=== PATIENT | female | born 1970 | race Caucasian/White ===

== ENCOUNTER → 2016-09-27 11:43 | Emergency (ER) | payer SELFPAY ==
[~2016-09-27 11:43] MED LIST: Cyclobenzaprine TAB* 10 MG PO ONE; Ibuprofen TAB* 400 MG PO ONE
[2016-09-27 11:47] VITALS: BP 144/87
--- NOTE | 2016-09-27 14:16 | ED ---
Neck Pain - HPI Summary HPI Summary: Patient presents with neck pain since tripping over a futon on home. She caught herself with her hands and thinks her muscles tightened with she kept her head from hitting the floor. She denies hitting her head, LOC, N/T or MALIK. - History of Current Complaint Chief Complaint: EDNeckComplaint Stated Complaint: NECK PAIN Time Seen by Provider: 09/27/16 12:32 Hx Obtained From: Patient Onset/Duration Of Injury/Symptoms: Hours Mechanism Of Injury: Other - falling Timing: Constant Onset/Duration: Gradual Onset Severity Initially: Mild Severity Currently: Mild Pain Intensity: 3 Character: Aching, Stiff Aggravating Factors: Movement Alleviating Factors: Nothing Associated Signs & Symptoms: Positive: Negative - Allergies/Home Medications Allergies/Adverse Reactions: Allergies Allergy/AdvReac Type Severity Reaction Status Date / Time No Known Allergies Allergy Verified 09/27/16 13:24 PMH/Surg Hx/FS Hx/Imm Hx Previously Healthy: Yes Infectious Disease History: No Infectious Disease History: Denies: Traveled Outside the in Last 30 Days - Family History Known Family History: Positive: None - Social History Occupation: Employed Part-time Lives: With Family Alcohol Use: Rare Substance Use Type: Reports: None Smoking Status (MU): Never Smoked Tobacco Review of Systems Negative: Photophobia, Blurred Vision Positive: Myalgia. Negative: Decreased ROM, Edema Negative: Bruising Negative: Weakness, Paresthesia, Numbness All Other Systems Reviewed And Are Negative: Yes Physical Exam Triage Information Reviewed: Yes Vital Signs On Initial Exam: Initial Vitals Temp Pulse Resp BP Pulse Ox 98.7 F 108 18 144/87 99 09/27/16 11:46 09/27/16 11:46 09/27/16 11:46 09/27/16 11:46 09/27/16 11:46 Vital Signs Reviewed: Yes Appearance: Positive: Well-Appearing, Well-Nourished, Pain Distress Skin: Positive: Warm, Skin Color Reflects Adequate Perfusion, Dry, Soft Head/Face: Positive: Normal Head/Face Inspection Eyes: Positive: EOMI, ISIDRO, Conjunctiva Clear ENT: Positive: Hearing grossly normal Neck: Positive: Supple, No Lymphadenopathy, Tenderness @ - TTP bilateral trapezius muscles Respiratory/Lung Sounds: Positive: Breath Sounds Present Cardiovascular: Positive: RRR Musculoskeletal: Positive: Strength/ROM Intact - pain with movement. Negative: Edema Left, Edema Right Neurological: Positive: Sensory/Motor Intact, Alert, Oriented to Person Place, Time, NV Bundle Intact Distally, Normal Gait Psychiatric: Positive: Affect/Mood Appropriate AVPU Assessment: Alert Diagnostics - Vital Signs Vital Signs Temp Pulse Resp BP Pulse Ox 09/27/16 13:24 98.7 F 108 18 144/87 94 09/27/16 11:46 98.7 F 108 18 144/87 99 - Laboratory Lab Statement: Any lab studies that have been ordered have been reviewed, and results considered in the medical decision making process. Re-Evaluation - Re-Evaluation First Eval Re-Evaluation Time: 14:10 Change: Improved - pain has decreased with treatment Neck Course/Dx - Diagnoses Differential Dx/HQI/PQRI: Positive: Adenitis, Arthritis, Sprain, Strain, Torticollis, Trauma Provider Diagnoses: Neck muscle strain Discharge - Discharge Plan Condition: Stable Disposition: HOME Prescriptions: Cyclobenzaprine TAB* [Flexeril 10 MG TAB*] 10 mg PO TID PRN #15 tab PRN Reason: Pain Patient Education Materials: Neck Pain (ED) Referrals: Non Staff,Doctor [Primary Care Provider] - [facility] [place] [place] [facility] [Outside] Additional Instructions: Please use the medication provided in combination with ibuprofen 600mg three times daily with meals for the next 3-5 days to decrease pain and stiffness. Apply a warm pack several times daily as well. Call the number provided to establish care with a provider who is accepting new patients. Follow-up with your primary care provider if symptoms do not begin to improve in the next 3-5 days. Return to the emergency department if symptoms worsen.
== END | disposition home or self-care (01) ==
LOC: ED 11:43
DX: S16.1XXA Strain of muscle, fascia and tendon at neck level, initial encounter (principal); M54.2 Cervicalgia; W19.XXXA Unspecified fall, initial encounter; Y93.9 Activity, unspecified; Y92.9 Unspecified place or not applicable
CPT/HCPCS: 99285; A9270-GY

== ENCOUNTER 2016-11-15 22:26 | Emergency (ER) | payer OTHER ==
[2016-11-15] MEDS ORDERED: Ketorolac INJ* 60 MG/2 ML VIAL IM ONE (22:58)
[2016-11-16] MEDS ORDERED: Tetan/Diph/Pertus SYR(Tdap)* 0.5 ML SYR(BOOSTRIX) use SYR IM ONE (00:28)
--- NOTE | 2016-11-16 00:55 | ED ---
Madeline De La Rosa Rebecca, scribed for Valentino Garcia MD on 11/15/16 at 2258 . Adult Trauma - HPI Summary HPI Summary: Pt is a 46 y/o F who presents to ED c/o dizziness and blurred vision/swelling in the L eye s/p mechanical fall. Pt reports 1 hour [employer] (2129) she fell forward , hitting her face on the ground. Denies LOC. Associated pain is currently severe, ranked 8/10. Sx began immediately after fall and have been constant since onset. - History of Current Complaint Chief Complaint: EDDizziness Stated Complaint: FALL- POSS BROKEN NOSE/DIZZY Time Seen by Provider: 11/15/16 22:50 Hx Obtained From: Patient Mechanism of Injury: Fall Loss of Consciousness: no loss of consciousness Onset/Duration: Started Hours Ago, Still Present Onset of Pain: Immediate Current Severity: Severe Pain Intensity: 8 Pain Scale Used: 0-10 Numeric Aggravating Factor(s): Nothing Alleviating Factor(s): Nothing Associated Signs & Symptoms: Positive: Other: - Dizziness, blurred vision/ swelling in the L eye. Negative: Loss of Consciousness - Allergy/Home Medications Allergies/Adverse Reactions: Allergies Allergy/AdvReac Type Severity Reaction Status Date / Time No Known Allergies Allergy Verified 11/15/16 22:28 PMH/Surg Hx/FS Hx/Imm Hx Previously Healthy: Yes Endocrine/Hematology History: Denies: Hx Diabetes Cardiovascular History: Denies: Hx Coronary Artery Disease, Hx Hypertension Infectious Disease History: No Infectious Disease History: Denies: Traveled Outside the [place] in Last 30 Days - Family History Known Family History: Negative: Hypertension, Diabetes - Social History Alcohol Use: None Substance Use Type: Reports: None Hx Tobacco Use: No Smoking Status (MU): Never Smoked Tobacco Review of Systems Positive: Blurred Vision - L eye Positive: Other - Swelling in the L eye Neurological: Other - Dizziness; Denies LOC All Other Systems Reviewed And Are Negative: Yes Physical Exam Triage Information Reviewed: Yes Vital Signs On Initial Exam: Initial Vitals Temp Pulse Resp BP Pulse Ox 97.5 F 109 20 129/74 100 11/15/16 22:30 11/15/16 22:30 11/15/16 22:30 11/15/16 22:30 11/15/16 22:30 Vital Signs Reviewed: Yes Appearance: Positive: Well-Appearing, Pain Distress - mild discomfort Skin: Positive: Warm Head/Face: Positive: Other - mildly swollen nose Eyes: Positive: EOMI, ISIDRO, Conjunctiva Inflammed - left ENT: Positive: Hearing grossly normal, Other - no septal hematoma Neck: Positive: Supple, Nontender Respiratory/Lung Sounds: Positive: Breath Sounds Present Cardiovascular: Positive: RRR Musculoskeletal: Positive: Strength/ROM Intact Neurological: Positive: Sensory/Motor Intact, Alert, Oriented to Person Place, Time, Normal Gait Diagnostics - Vital Signs Vital Signs Temp Pulse Resp BP Pulse Ox 11/15/16 22:30 97.5 F 109 20 129/74 100 - Laboratory Lab Statement: Any lab studies that have been ordered have been reviewed, and results considered in the medical decision making process. - CT Brain CT CT Interpretation: Positive (See Comments) - Nasal bridge fracture. No intracranial pathology. CT Interpretation Completed By: Radiologist Maxillofacial CT CT Interpretation: Positive (See Comments) - There are acute, mildly displaced fractures of both sides of the nasal bone. The facial bones and orbits are otherwise intact. Orbital globes and extraocular muscles are grossly intact. 2.0 cm mucous retention cyst is noted in the right maxillary sinus. There is a tiny air-fluid level noted in the left maxillary sinus. CT Interpretation Completed By: Radiologist - EKG 2256 Cardiac Rate: NL - 90 bpm EKG Rhythm: Sinus Rhythm EKG Interpretation: No STEMI Re-Evaluation - Re-Evaluation First Eval Re-Evaluation Time: 00:29 Change: Improved Comment: Discussed CT results with pt as well as disposition. Second Eval Re-Evaluation Time: 01:18 Comment: Pt requests work note. Adult Trauma Course/Dx - Course Assessment/Plan: Pt is a 46 y/o F who presents to ED c/o dizziness and swelling in the L eye that began immediately s/p mechanical fall at 2130 tonight. Denies LOC. Associated pain is currently severe, ranked 8/10. Brain CT and Maxillofacial CT reveal fractures of the nasal bone. EKG reveals no acute findings. She will be D/C to home with Dx of nasal bone fracture with a follow up with ENT. She understands and agrees. - Diagnoses Provider Diagnoses: Nasal bone fracture Discharge - Discharge Plan Condition: Stable Disposition: HOME Prescriptions: Ibuprofen TAB* [Motrin TAB* 600 MG] 600 mg PO Q6H #30 tab Patient Education Materials: Nasal Fracture (ED) Forms: *Work Release Referrals: Giovanni Kimball MD [Medical Doctor] - 2 Days The documentation as recorded by the Madeline lerma Rebecca accurately reflects the service I personally performed and the decisions made by me, Valentino Garcia MD.
[2016-11-16] MEDS ORDERED: Ibuprofen TAB* 600 MG PO ONE ×2 (01:16→01:21)
[2016-11-16 01:37] VITALS: BP 110/64
--- NOTE | 2016-11-16 07:34 | RAD ---
HISTORY: Fall, trauma, dizziness COMPARISONS: None TECHNIQUE: Multiple contiguous axial CT scans were obtained of the face without intravenous contrast, with coronal and sagittal multiplanar reformations. FINDINGS: BONES: There are comminuted fractures of the nasal bones bilaterally. The orbital rims are intact. ORBITS: The globes are round. The optic nerves are symmetric. The extraocular musculature is normal. There is no post septal or intraconal inflammatory change. There is no retrobulbar hematoma. PARANASAL SINUSES: The nasal septum is deviated to the left with right-sided spurring. There is a mucous retention cyst versus polypoid mucosal thickening of the right maxillary sinus. BRAIN AND SOFT TISSUE: Unremarkable. OTHER: None. IMPRESSION: BILATERAL NASAL BONE FRACTURES
--- NOTE | 2016-11-16 07:36 | RAD ---
INDICATION: Head injury. COMPARISON: There are no prior studies available for comparison. TECHNIQUE: Contiguous axial sections of the brain were obtained from the skull base to the vertex without contrast. FINDINGS: The ventricles, cisterns and sulci are within normal limits. No significant focal abnormality or mass effect is seen. There is no evidence for hemorrhage. There are bilateral fractures of the nasal bones. No additional fractures are seen. There is a 1.6 cm mucous retention cyst or polyp within the right maxillary sinus. The visualized portion of the paranasal sinuses and mastoid air cells otherwise appear clear. IMPRESSION: 1. NO EVIDENCE FOR ACUTE INTRACRANIAL ABNORMALITY. 2. BILATERAL NASAL BONE FRACTURES.
== END 2016-11-16 01:30 | disposition home or self-care (01) ==
LOC: MERGE 22:26 → ED 22:26
DX: S02.2XXA Fracture of nasal bones, initial encounter for closed fracture (principal); W18.30XA Fall on same level, unspecified, initial encounter; Y93.9 Activity, unspecified; Y92.9 Unspecified place or not applicable; Z23 Encounter for immunization; H53.8 Other visual disturbances; R42 Dizziness and giddiness
CPT/HCPCS: 70450; 70486; 90471; 90715; 93005; 96372; 99283; A9270-GY; J1885

== ENCOUNTER 2016-11-16 12:56 | Emergency (ER) | payer OTHER ==
[2016-11-16] MEDS ORDERED: Tetracaine 0.5% OPTH.SOL 4 ML* 1 DROP BTL ONE (13:44)
[2016-11-16] MEDS ORDERED: Tetracaine 0.5% OPTH.SOL 15ML* BTL ONE (13:45)
[2016-11-16] MEDS ORDERED: HYDROcodone/ACETAMIN 5-325 MG* 1 TAB PO ONE (14:33)
--- NOTE | 2016-11-16 14:38 | ED ---
Throat Pain/Nasal Congestion - History of Current Complaint Chief Complaint: EDEyeProblem Time Seen by Provider: 11/16/16 13:44 - Allergies/Home Medications Allergies/Adverse Reactions: Allergies Allergy/AdvReac Type Severity Reaction Status Date / Time No Known Allergies Allergy Verified 09/27/16 13:24 PMH/Surg Hx/FS Hx/Imm Hx Endocrine/Hematology History: Denies: Hx Diabetes Cardiovascular History: Denies: Hx Coronary Artery Disease, Hx Hypertension Infectious Disease History: No Infectious Disease History: Denies: Traveled Outside the [place] in Last 30 Days - Family History Known Family History: Positive: None Negative: Hypertension, Diabetes - Social History Alcohol Use: Rare Substance Use Type: Reports: None Hx Tobacco Use: No Smoking Status (MU): Never Smoked Tobacco Physical Exam Vital Signs On Initial Exam: Initial Vitals Temp Pulse Resp BP Pulse Ox 99 F 76 17 114/54 97 11/16/16 12:57 11/16/16 12:57 11/16/16 12:57 11/16/16 12:57 11/16/16 12:57 - Naila Coma Scale Coma Scale Total: 15 Diagnostics - Vital Signs Vital Signs Temp Pulse Resp BP Pulse Ox 11/16/16 13:06 99 F 76 16 114/54 97 11/16/16 12:57 99 F 76 17 114/54 97 - Laboratory Lab Statement: Any lab studies that have been ordered have been reviewed, and results considered in the medical decision making process. EENT Course/Dx - Diagnoses Provider Diagnoses: Corneal abrasion, left Discharge - Discharge Plan Condition: Stable Disposition: HOME Patient Education Materials: Corneal Abrasion (ED) Referrals: No Primary Care Phys,NOPCP [Primary Care Provider] - Ricky Leal MD [Medical Doctor] - Additional Instructions: Use prescribed eye drops in left eye, 1 drop every 3 hours for the next 7 days, or until entire bottle is finished. If new symptoms develop or symptoms worsen return to ED. Give eye 24-48 hours for improvement. Rest eye, keep closed, wear sunglasses and stay away from bright lights. Cool compresses to help soothe pain. Keep fingers and things out of the eye. Do not use eye until symptoms improved. Follow up with eye doctor on Saturday if symptoms persist. Follow up with PCP.
[2016-11-16] MEDS ORDERED: Polymyx/Trimethoprim OPTH* 10 ML BTL LEFT EYE SCH (15:00)
[2016-11-16 15:47] VITALS: BP 112/58
== END 2016-11-16 15:45 | disposition home or self-care (01) ==
LOC: ED 12:56
DX: S05.02XA Injury of conjunctiva and corneal abrasion without foreign body, left eye, initial encounter (principal); X58.XXXA Exposure to other specified factors, initial encounter; Y93.9 Activity, unspecified; Y92.9 Unspecified place or not applicable
CPT/HCPCS: 99282; A9270-GY

== ENCOUNTER 2016-11-24 18:51 | Emergency (ER) | payer OTHER ==
[2016-11-24] MEDS ORDERED: BSS OPTH.SOL* BTL OPHTHALMIC ONE (22:35)
[2016-11-24] MEDS ORDERED: Fluorescein Sodium TOPICAL* 1 MG TEST OPHTHALMIC ONE (22:36)
--- NOTE | 2016-11-25 00:12 | UC ---
Eye Complaint HPI - HPI Summary HPI Summary: 7 days ago fell on broke her nose-came in to the ed the next day with left eye pain-she was then dx with a corneal abrasion, rx eye drops---She seemed to be getting better then this morning noted the vision in her left eye was blurry - History of Current Complaint Chief Complaint: EDEyeProblem Stated Complaint: EYE COMPLAINT Time Seen by Provider: 11/24/16 22:29 Hx Obtained From: Patient ?: No Onset/Duration: Lasting Weeks - 1, Still Present, Worse Since - seemed to get better than got worse again today Timing: Constant Severity Initially: Mild Severity Currently: Mild Pain Intensity: 2 Pain Scale Used: 0-10 Numeric Aggravating Factor(s): Nothing Alleviating Factor(s): Nothing Associated Signs And Symptoms: Positive: Vision Impairment Left - Allergies/Home Medications Allergies/Adverse Reactions: Allergies Allergy/AdvReac Type Severity Reaction Status Date / Time No Known Allergies Allergy Verified 09/27/16 13:24 PMH/Surg Hx/FS Hx/Imm Hx Previously Healthy: Yes - Family History Known Family History: Positive: None Negative: Hypertension, Diabetes - Social History Occupation: Employed Full-time Lives: With Family Alcohol Use: Rare Substance Use Type: None Smoking Status (MU): Never Smoked Tobacco Review of Systems Constitutional: Negative Skin: Negative Eyes: Blurred Vision - left eye ENT: Negative Respiratory: Negative Cardiovascular: Negative Gastrointestinal: Negative Genitourinary: Negative Motor: Negative Neurovascular: Negative Musculoskeletal: Negative Neurological: Negative Psychological: Negative All Other Systems Reviewed And Are Negative: Yes Physical Exam Triage Information Reviewed: Yes Appearance: Well-Appearing, No Pain Distress, Well-Nourished Vital Signs: Initial Vital Signs Temp 97.2 F 11/24/16 19:01 Pulse 73 11/24/16 19:01 Resp 16 11/24/16 19:01 Pulse Ox 99 11/24/16 19:01 Vital Signs Reviewed: Yes Eye Exam: Normal Eyes: Positive: Conjunctiva Clear, Other: - eomi, visual tomlin equal, perrla, fundascopic exam wnl, no c/o floaters, halos, flushing light, no evidence of corneal abrasion or ulceration with Flu. examination ENT Exam: Normal ENT: Positive: Normal ENT inspection, Hearing grossly normal, Pharynx normal, TMs normal. Negative: Nasal congestion, Nasal drainage, Tonsillar swelling, Tonsillar exudate, Trismus, Muffled/hoarse voice Dental Exam: Normal Neck exam: Normal Neck: Positive: Supple, Nontender, No Lymphadenopathy Respiratory Exam: Normal Respiratory: Positive: Chest non-tender, Lungs clear, Normal breath sounds, No respiratory distress, No accessory muscle use Cardiovascular Exam: Normal Cardiovascular: Positive: RRR, No Murmur, Pulses Normal, Brisk Capillary Refill Musculoskeletal Exam: Normal Musculoskeletal: Positive: Strength Intact, ROM Intact, No Edema Neurological Exam: Normal Neurological: Positive: Alert, Muscle Tone Normal Psychological Exam: Normal Skin Exam: Normal Eye Complaint Course/Dx - Course Course Of Treatment: rest , no eye drops or treatments follow with Dr. Geiger on Saturday - Differential Dx/Diagnosis Differential Diagnosis/HQI/PQRI: Corneal Abrasion, Detached Retina, Glaucoma, Penetrating Injury Provider Diagnoses: OS visual deficit - Physician Notification/Consults Discussed Patient Care With: Ismael Geiger Time Discussed With Above Provider: 12:15 Instructed by Provider To: Have Pt Call For Appt. - will see patient Saturday in office Discharge - Discharge Plan Condition: Stable Disposition: HOME Patient Education Materials: Blurred Vision (ED), Eye Pain (ED) Referrals: Ismael Geiger MD [Medical Doctor] - 11/26/16
[2016-11-25 00:46] VITALS: BP 112/67
== END 2016-11-24 23:30 | disposition home or self-care (01) ==
LOC: ED 18:51
DX: R41.842 Visuospatial deficit (principal); H57.12 Ocular pain, left eye
CPT/HCPCS: 99281; A9270-GY

== ENCOUNTER 2016-12-26 10:13 | Emergency (ER) | payer OTHER ==
--- NOTE | 2016-12-26 12:36 | UC ---
Abdominal Pain Female HPI - HPI Summary HPI Summary: 46 YEAR OLD FEMALE PRESENTS WITH SEVERE LEFT SIDED PELVIC PAIN. I AM CONCERNED ABOUT TORSION VS ECTOPIC VS CYST AND WILL SEND HER TO THE ER. - History of Current Complaint Chief Complaint: UCAbdominalPain Stated Complaint: LOWER ABD PAIN Time Seen by Provider: 12/26/16 12:29 Hx Obtained From: Patient Hx Last Menstrual Period: 12/22/16 Onset/Duration: Gradual Onset Timing: Constant Severity Currently: Severe Pain Scale Used: 0-10 Numeric - 8 Location: Discrete At: LLQ Radiates to: Inguinal Character: Aching, Cramping, Sharp Allergies/Adverse Reactions: Allergies Allergy/AdvReac Type Severity Reaction Status Date / Time No Known Allergies Allergy Verified 12/26/16 10:47 Home Medications: Home Medications NK [No Home Medications Reported] 12/26/16 [History Confirmed 12/26/16] PMH/Surg Hx/FS Hx/Imm Hx Previously Healthy: Yes - Surgical History Surgical History: None - Family History Known Family History: Positive: None Negative: Hypertension, Diabetes - Social History Alcohol Use: None Substance Use Type: None Smoking Status (MU): Never Smoked Tobacco Review of Systems Constitutional: Negative Skin: Negative Eyes: Negative ENT: Negative Respiratory: Negative Cardiovascular: Negative Gastrointestinal: Other - LEFT SIDED PELVIC PAIN Genitourinary: Negative Motor: Negative Neurovascular: Negative Musculoskeletal: Negative Neurological: Negative Psychological: Negative All Other Systems Reviewed And Are Negative: Yes Physical Exam Triage Information Reviewed: Yes Vital Signs: Initial Vital Signs Temp 36.7 C 12/26/16 10:48 Pulse 92 12/26/16 10:48 Resp 16 12/26/16 10:48 BP 106/69 12/26/16 10:48 Pulse Ox 99 12/26/16 10:48 Eye Exam: Normal ENT Exam: Normal Dental Exam: Normal Neck exam: Normal Neck: Positive: 1 Respiratory Exam: Normal Cardiovascular Exam: Normal Abdomen Description: Positive: Other: - LEFT SIDED PELVIC PAIN Musculoskeletal Exam: Normal Neurological Exam: Normal Psychological Exam: Normal Skin Exam: Normal Abd Pain Female Course/Dx - Differential Dx/Diagnosis Provider Diagnoses: LEFT PELVIC PAIN Discharge - Discharge Plan Condition: Stable Disposition: HOME Patient Education Materials: Acute Abdominal Pain (ED), Pelvic Pain in Women ( ED) Referrals: Haley Hathaway MD [Primary Care Provider] - If Needed Additional Instructions: PLEASE GO TO ER TO RULE OUT OVARIAN TORSION.
[2016-12-26 12:37] VITALS: BP 135/87
== END 2016-12-26 12:49 | disposition home or self-care (01) ==
LOC: UCEAST 10:13
DX: R10.2 Pelvic and perineal pain (principal)
CPT/HCPCS: 99212; G0463

== ENCOUNTER 2017-06-08 19:13 | Emergency (ER) | payer OTHER ==
[2017-06-08] MEDS ORDERED: traMADol TAB* 50 MG PO ONE ×2 (19:54→21:13)
[2017-06-08] MEDS ORDERED: Oxymetazoline 0.05% NASAL SPR* 15 ML BTL LEFT NARE ONE (20:04)
[2017-06-08] MEDS ORDERED: Phenylephrine 1% NASAL* 15 ML BOT LEFT NARE ONE (20:10)
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
[2017-06-08 21:22] VITALS: BP 134/72
== END 2017-06-08 21:39 | disposition home or self-care (01) ==
LOC: UCEAST 19:13
DX: S00.83XA Contusion of other part of head, initial encounter (principal); R04.0 Epistaxis; Y04.8XXA Assault by other bodily force, initial encounter; Y92.9 Unspecified place or not applicable
CPT/HCPCS: 70150; 99213; A9270-GY; G0463

== ENCOUNTER 2017-10-21 15:47 | Emergency (ER) | payer OTHER ==
[2017-10-21 16:07] VITALS: BP 110/65
--- NOTE | 2017-10-21 17:31 | UC ---
Abdominal Pain Female HPI - HPI Summary HPI Summary: patient is her tonight hoping to get rx for BCP---she gets pelvic pain mid cycle and is thinking BCP will help (they have in the past when dx with ovarian cyst). Patient is taking imetrex for migranes---usually sees Dr. Hathaway - History of Current Complaint Hx Obtained From: Patient Hx Last Menstrual Period: 09/29/17 ?: No Onset/Duration: Gradual Onset Timing: Intermittent Episodes Lasting: Pain Intensity: 0 Pain Scale Used: 0-10 Numeric Location: Discrete At: LLQ Radiates: Yes Aggravating Factor(s): Nothing Alleviating Factor(s): Nothing Associated Signs and Symptoms: Positive: Negative <Rosario Gama - Last Filed: 10/21/17 18:06> <Jocelyne Ayala - Last Filed: 10/22/17 09:42> - History of Current Complaint Chief Complaint: UCGeneralIllness Stated Complaint: PRIVATE Time Seen by Provider: 10/21/17 16:57 Allergies/Adverse Reactions: Allergies Allergy/AdvReac Type Severity Reaction Status Date / Time No Known Allergies Allergy Verified 10/21/17 16:01 PMH/Surg Hx/FS Hx/Imm Hx Previously Healthy: No Neurological History: Migraine - Surgical History Surgical History: Yes Surgery Procedure, Year, and Place: broken nose repair - Family History Known Family History: Positive: None Negative: Hypertension, Diabetes - Social History Occupation: Unemployed Lives: With Family Alcohol Use: None Substance Use Type: None Smoking Status (MU): Never Smoked Tobacco <Rosario Gama - Last Filed: 10/21/17 18:06> Review of Systems Constitutional: Negative Skin: Negative Eyes: Negative ENT: Negative Respiratory: Negative Cardiovascular: Negative Gastrointestinal: Abdominal Pain - pelvic pain --(none now) but during mid menstral cycle Genitourinary: Negative Motor: Negative Neurovascular: Negative Musculoskeletal: Negative Neurological: Negative Psychological: Negative Is Patient Immunocompromised?: No All Other Systems Reviewed And Are Negative: Yes <Rosario Gama - Last Filed: 10/21/17 18:06> Physical Exam Triage Information Reviewed: Yes Appearance: Well-Appearing, No Pain Distress, Well-Nourished Vital Signs: Initial Vital Signs Temp 98.5 F 10/21/17 16:02 Pulse 80 10/21/17 16:02 Resp 16 10/21/17 16:02 BP 110/65 10/21/17 16:02 Pulse Ox 100 10/21/17 16:02 Vital Signs Reviewed: Yes Eye Exam: Normal Eyes: Positive: Conjunctiva Clear ENT Exam: Normal ENT: Positive: Normal ENT inspection, Hearing grossly normal. Negative: Nasal congestion, Trismus, Muffled voice, Hoarse voice Dental Exam: Normal Neck exam: Normal Neck: Positive: Supple, No Lymphadenopathy Respiratory Exam: Normal Respiratory: Positive: Chest non-tender, No respiratory distress, No accessory muscle use Cardiovascular Exam: Normal Cardiovascular: Positive: RRR, Pulses Normal, Brisk Capillary Refill Abdominal Exam: Normal Abdomen Description: Positive: Nontender, No Organomegaly, Soft. Negative: CVA Tenderness (R), CVA Tenderness (L) Musculoskeletal Exam: Normal Musculoskeletal: Positive: Strength Intact, ROM Intact, No Edema Neurological Exam: Normal Neurological: Positive: Alert, Muscle Tone Normal Psychological Exam: Normal Skin Exam: Normal <Rosario Gama - Last Filed: 10/21/17 18:06> Vital Signs: Initial Vital Signs Temp 98.5 F 10/21/17 16:02 Pulse 80 10/21/17 16:02 Resp 16 10/21/17 16:02 BP 110/65 10/21/17 16:02 Pulse Ox 100 10/21/17 16:02 <Jocelyne Ayala - Last Filed: 10/22/17 09:42> Abd Pain Female Course/Dx - Course Course Of Treatment: follow with Dr. Hathaway or go to emergency department for worsening sx - Differential Dx/Diagnosis Provider Diagnoses: Pelvic pain/ovarian cyst by history <Rosario Gama - Last Filed: 10/21/17 18:06> Discharge - Sign-Out/Discharge Documenting (check all that apply): Discharge/Admit/Transfer - Billing Disposition and Condition Condition: STABLE Disposition: Home <Rosario Gama - Last Filed: 10/21/17 18:06> - Billing Disposition and Condition Condition: STABLE Disposition: Home <Jocelyne Ayala - Last Filed: 10/22/17 09:42> - Discharge Plan Condition: Stable Disposition: HOME Patient Education Materials: Pelvic Pain in Women (ED) Referrals: Haley Hathaway MD [Primary Care Provider] - 3 Days Attestation Statement User Type: Provider - I was available for consult. This patient was seen by the [facility]NA[facility]. The patient was not presented to, seen by, or examined by me. -Eleno <Jocelyne Ayala - Last Filed: 10/22/17 09:42>
== END 2017-10-21 17:44 | disposition home or self-care (01) ==
LOC: UCEAST 15:47
DX: R10.2 Pelvic and perineal pain (principal); R10.32 Left lower quadrant pain; N83.209 Unspecified ovarian cyst, unspecified side; G43.909 Migraine, unspecified, not intractable, without status migrainosus
CPT/HCPCS: 99211; G0463